=== PATIENT | female | born 1955 | race Caucasian/White ===

== ENCOUNTER → 2025-06-20 | Outpatient (CLI) | payer MEDICARE ==
--- NOTE | 2025-06-20 11:12 | HMCIMG ---
ABD 1VW REASON: NONONFECTIVE GASTROENTARITIS AND COLITIS.N/V, DIARRHEA FINDINGS: Single image of the abdomen was obtained. Bowel gas pattern is normal. Bones and soft tissues appear unremarkable. There are no abnormal calcifications. There is no evidence of foreign body. There is osteopenia of the osseous structure. There are surgical clips in right upper quadrant from prior cholecystectomy. There is atherosclerotic changes of both iliac and femoral vessels with calcified plaque. There is a device either in the urinary bladder or rectum would recommend further clinical correlation. IMPRESSION: 1. Nonspecific gas pattern..
== END | disposition home or self-care (01) ==
LOC: RAH 07:45
PROVIDERS: ATTEND Nurse Practitioner Family
DX: K52.9 Noninfective gastroenteritis and colitis, unspecified (principal); I70.8 Atherosclerosis of other arteries; R11.2 Nausea with vomiting, unspecified; Z90.49 Acquired absence of other specified parts of digestive tract
CPT/HCPCS: 74018